=== PATIENT | female | born 1960 | race Caucasian/White ===

== ENCOUNTER 2019-03-14 23:25 | Inpatient (IN) | payer BC ==
[2019-03-14 23:44] LABS: HEMOGLOBIN 14.6 g/dL (12.0-15.5); MEAN CORPUSCULAR HEMOGLOBIN 28.9 pg (27.0-33.4); MEAN CORPUSCULAR HGB CONC 33.9 g/dL (32.0-36.0); MEAN CORPUSCULAR VOLUME 85 fl (80-97); PLATELET COUNT 234 10^3/uL (150-450); RED BLOOD COUNT 5.05 10^6/uL (3.72-5.28); RED CELL DISTRIBUTION WIDTH 13.7 % (11.5-14.0)
[2019-03-15 00:04] LABS: ALKALINE PHOSPHATASE 99 U/L (38-126); ANION GAP 11 (5-19); ASPARTATE AMINO TRANSFERASE 23 U/L (14-36); BILIRUBIN,DIRECT 0.3 mg/dL (0.0-0.4); BILIRUBIN,TOTAL 0.5 mg/dL (0.2-1.3); BLOOD UREA NITROGEN 16 mg/dL (7-20); CALCIUM 8.8 mg/dL (8.4-10.2); CARBON DIOXIDE 27 mmol/L (22-30); CHLORIDE 102 mmol/L (98-107); GLUCOSE 157 mg/dL (75-110); POTASSIUM 3.6 mmol/L (3.6-5.0); TOTAL PROTEIN 7.7 g/dL (6.3-8.2)
--- NOTE | 2019-03-15 00:07 | RADIOLOGY REPORT (SQ) ---
EXAM DESCRIPTION: XR CHEST 1 VIEW COMPLETED DATE/TME: 03/14/2019 23:35 CLINICAL HISTORY: 58 years Female SOB; CP; back pain COMPARISON: None. FINDINGS: Heart is at the upper limits of normal. Infiltrate or atelectasis the left lung base with a small left effusion. Findings may reflect pneumonia. Right lung appears clear. No pneumothorax. IMPRESSION: Left pleural effusion with left lower lobe atelectasis or infiltrate. Findings may reflect pneumonia
[2019-03-15 00:14] LABS: ABSOLUTE LYMPHOCYTES# (MANUAL) 3.6 10^3/uL (0.5-4.7); ABSOLUTE MONOCYTES # (MANUAL) 1.2 10^3/uL (0.1-1.4); BASOPHILS % (MANUAL) 0 % (0-2); EOSINOPHILS % (MANUAL) 1 % (0-6); LYMPHOCYTES % (MANUAL) 18 % (13-45); MONOCYTES % (MANUAL) 6 % (3-13); SEGMENTED NEUTROPHILS % (MAN) 75 % (42-78); TOTAL CELLS COUNTED 100
[2019-03-15 00:16] LABS: PLATELET COMMENT ADEQUATE; RBC MORPHOLOGY COMMENT NORMO-CYTIC/CHROMIC; TOXIC GRANULATION SLIGHT
[2019-03-15 03:01] LABS: APPEARANCE,URINE CLEAR; BILIRUBIN,URINE NEGATIVE (NEGATIVE); COLOR,URINE STRAW; GLUCOSE, URINE NEGATIVE (NEGATIVE); KETONES,URINE NEGATIVE (NEGATIVE); LEUKOCYTE ESTERASE,URINE NEGATIVE (NEGATIVE); NITRITE,URINE NEGATIVE (NEGATIVE); PROTEIN,URINE NEGATIVE (NEGATIVE); URINE SPECIFIC GRAVITY 1.011; UROBILINOGEN,URINE NEGATIVE mg/dL (<2.0)
[2019-03-15] MEDS ORDERED: IPRATROPIUM/ALBUTEROL 0.5-2.5 MG/3 ML AMPUL NEB ONE (03:16)
[2019-03-15] MEDS ORDERED: CEFTRIAXONE 1 GM/D5W RTU 50 ML IV ONE (03:16)
[2019-03-15] MEDS ORDERED: CEFTRIAXONE INJ 1000 MG VIAL IV ONE (03:20)
[2019-03-15] MEDS ORDERED: METHYLPREDNISOLONE INJ 125 MG/2 ML SDV IV ONE (03:20)
--- NOTE | 2019-03-15 03:23 | ER Document Report ---
ED Respiratory Problem - General Chief Complaint: Shortness Of Breath Stated Complaint: SHORTNESS OF BREATH Time Seen by Provider: 03/15/19 02:59 Notes: Patient is a 58-year-old female who presents to the emergency department with a chief complaint of shortness of breath. Patient symptoms started today. Patient states that she has been under a great deal of stress. She states that she feels like she cannot get a good deep breath in. She also has some chest discomfort that started on the right side of her chest and has moved to the mid dle. Denies any vomiting. - Related Data Allergies/Adverse Reactions: No Known Allergies Allergy (Verified 03/15/19 01:18) Home Medications: synthroid. zoloft Past Medical History - Social History Smoking Status: Never Smoker Family History: Reviewed & Not Pertinent Patient has suicidal ideation: No Patient has homicidal ideation: No Endocrine Medical History: Reports: Hx Diabetes Mellitus Type 2 Psychiatric Medical History: Reports: Hx Depression Review of Systems - Review of Systems Notes: REVIEW OF SYSTEMS: CONSTITUTIONAL : Denies recent illness. Denies recent unintentional weight loss. Denies fever, chills, or sweats. EENT: Denies eye, ear, throat, or mouth pain, discharge, or symptoms. Denies nasal or sinus congestion. CARDIOVASCULAR: Denies chest pain. RESPIRATORY: See HPI. GASTROINTESTINAL: Denies nausea, vomiting, and diarrhea. Denies abdominal pain. Denies constipation. GENITOURINARY: Denies difficulty urinating, burning, blood in urine, urgency or frequency. MUSCULOSKELETAL: Denies neck and back pain. Denies joint pain or swelling. SKIN: Denies rash, itchiness, or lesions HEMATOLOGIC : Denies easy bruising or bleeding. LYMPHATIC: Denies swollen, painful, enlarged glands. NEUROLOGICAL: Denies no numbness or tingling denies weakness. Denies headache. Denies altered mental status. Denies alteration in speech. PSYCHIATRIC: Denies stress, anxiety, alteration in sleep patterns, or depression. All other systems reviewed and negative. Physical Exam - Vital signs Vitals: Pulse Ox 93 03/14/19 23:25 - Notes Notes: PHYSICAL EXAMINATION: GENERAL: Appears well, healthy, well-nourished, no acute distress. HEAD: Normocephalic, atraumatic. EYES: PERRL, conjunctiva normal, all extraocular movements intact, sclera nonicteric ENT: Moist mucous membranes. NECK: Supple, no noticeable swelling, redness, rash. Normal range of motion. LUNGS: Diminished breath sounds throughout. CARDIOVASCULAR: S1-S2, regular rate, regular rhythm. Radial pulses 2+, normal. ABDOMEN: Normoactive bowel sounds. Soft, nontender, no guarding, no rebound tenderness, and no masses palpated. EXTREMITIES: Normal strength and range of motion, no pitting or edema. No cyanosis. NEUROLOGICAL: Moves all extremities upon command. Strength 5/5 in all extremities. PSYCH: Normal mood, normal affect. SKIN: Warm, dry. No rash, lesions, ulcerations noted. Normal skin turgor. Course - Re-evaluation Re-evalutation: 03/15/19 03:24 Patient's hematology is unremarkable. Patient has a leukocytosis of 20,000. Her troponin is at 0.064. This most likely demand ischemia, as the patient's oxygen saturation was low. Patient does not normally wear oxygen, but is requiring oxygen here in the emergency department. Patient will be sent for a CT of the chest. 03/15/19 05:07 Patient has a lump noted to her left breast on her CT. She also does have the pleural effusions, which were noted on x-ray. I did a breast exam with VALENTIN Yost at bedside. She did have a small lump noted, consistent with her CT. Patient's ABG also shows that her O2 saturation is 89 on room air, consistent with her oxygen saturation dropping. Her PO2 is 53.3 without oxygen. She will continue oxygen on 2 L nasal cannula. Due to the patient still requiring oxygen, I spoke with Dr. Zeng, the hospitalist. The patient will be admitted to the telemetry floor. - Vital Signs Vital signs: Temp Pulse Resp BP Pulse Ox 97.6 F 93 16 143/84 H 95 03/16/19 07:36 03/16/19 08:27 03/16/19 08:27 03/16/19 07:36 03/16/19 08:27 - Laboratory Result Diagrams: 03/16/19 05:12 03/16/19 05:12 Laboratory results interpreted by me: 03/14/19 03/14/19 03/15/19 23:29 23:29 03:55 WBC 20.0 H Abs Neuts (Manual) 15.0 H Carbonic Acid 1.02 L ABG pH 7.46 H ABG pCO2 33.8 L ABG pO2 53.3 L ABG O2 Saturation 89.6 L Glucose 157 H Discharge - Discharge Clinical Impression: Hypoxia Pneumonia Qualifiers: Pneumonia type: due to unspecified organism Laterality: left Lung location: unspecified part of lung Qualified Code(s): J18.9 - Pneumonia, unspecified organism Condition: Stable Disposition: ADMITTED INPATIENT Admitting Provider: Azucena (Hospitalist) Unit Admitted: Telemetry
--- NOTE | 2019-03-15 04:18 | RADIOLOGY REPORT (SQ) ---
CT CHEST WITHOUT INTRAVENOUS CONTRAST: 03/15/2019 3:13 AM [employer] HISTORY: 58-year old patient with concern for infection, effusion. COMPARISON: None available TECHNIQUE: Serial 3 mm axial images were obtained from above the thoracic inlet to the upper abdomen without intravenous contrast administered. Sagittal and coronal reconstructions were also obtained and reviewed. This exam was performed according to our departmental dose-optimization program, which includes automated exposure control, adjustment of the mA and/or KV according to the patient's size and/or use of iterative reconstruction technique. FINDINGS: Both lobes of the thyroid appear homogenous with no suspicious nodules identified. The thoracic aorta is normal in size. The heart is mildly prominent in size. There is no evidence of a pericardial effusion. Coronary artery catheterizations are seen. There are trace bilateral pleural effusions, left greater than right. No pneumothorax is evident. There are bibasilar airspace opacities. The central tracheobronchial tree is patent. No suspicious lung nodules are identified. No significant supraclavicular, axillary, or mediastinal lymphadenopathy is identified. Evaluation of the upper abdomen is limited by the lack of intravenous contrast. No gross abnormality seen at the upper abdomen. Review of the bone show no evidence of any suspicious lytic or blastic lesions. There is a possible mass within the left retroareolar region measuring at least 3.3 x 2.9 cm. IMPRESSION: There are bibasilar cysts opacities and bilateral effusions, left greater than right. These may reflect infection or atelectasis. There is a possible left retroareolar breast mass. Further evaluation with diagnostic mammogram and ultrasound will likely be warranted.
[2019-03-15 05:12] LABS: ARTERIAL BLOOD BASE EXCESS 0.3 mmol/L; ARTERIAL BLOOD FIO2 ROOM AIR; ARTERIAL BLOOD H2CO3 1.02 mmol/L (1.05-1.35); ARTERIAL BLOOD HCO3 23.4 mmol/L (20-24); ARTERIAL BLOOD O2 SATURATION 89.6 % (94-98); ARTERIAL BLOOD PCO2 33.8 mmHg (35-45); ARTERIAL BLOOD PH 7.46 (7.35-7.45); ARTERIAL BLOOD PO2 53.3 mmHg (80-100); ARTERIAL BLOOD TOTAL CO2 24.5 mmol/L (21-25)
[2019-03-15] MEDS ORDERED: LEVALBUTEROL HCL NEB 0.63 MG/3 ML AMPUL NEB PRN (05:45)
[2019-03-15] MEDS ORDERED: INSULIN REG, HUMAN 100 UNIT/ML 3 ML VIAL (PYX) SUBCUT PRN (05:50)
[2019-03-15] MEDS ORDERED: MAGNESIUM HYDROXIDE SUSP 30 ML UDCUP PO PRN (05:50)
[2019-03-15] MEDS ORDERED: ACETAMINOPHEN 325 MG TABLET PO PRN (05:50)
[2019-03-15] MEDS ORDERED: GUAIFENESIN SYRP 200 MG/10 ML UDC PO PRN (05:50)
[2019-03-15] MEDS ORDERED: MAG HYDROX/AL HYDROX/SIMETH SUSP 30 ML UDCUP PO PRN (05:50)
[2019-03-15] MEDS ORDERED: IBUPROFEN 800 MG TABLET PO PRN (05:50)
[2019-03-15] MEDS ORDERED: HYDRALAZINE HCL INJ/PF 20 MG/1 ML SDV IV PRN (05:50)
[2019-03-15] MEDS ORDERED: LORAZEPAM INJ 2 MG/1 ML VIAL IV PRN (05:50)
[2019-03-15] MEDS ORDERED: DEXTROSE 50%-WATER 25 GM/50 ML DISP.SYRIN IV PRN ×2 (05:52)
[2019-03-15] MEDS ORDERED: GLUCAGON,HUMAN RECOMB 1 MG INJ IM PRN (05:52)
[2019-03-15] MEDS ORDERED: DEXTROSE 40% GEL 15 GM TUBE PO PRN ×2 (05:52)
[2019-03-15] MEDS: HEPARIN SOD (PORCINE) 5,000 UNIT/ML 1 ML VIAL SUBCUT SCH ×3 (06:35→21:32)
--- NOTE | 2019-03-15 06:40 | PDOC H&P ---
History of Present Illness Admission Date/PCP: 03/15/19 05:12 Carin Dewitt Patient complains of: Dyspnea History of Present Illness: STEPHIE SOLIS is a 58 year old female who presents to the emergency room with acute dyspnea. Patient admits suddenly developing severe dyspnea at approximately 10 PM on the evening of of 03/14/2019. Patient describes her dyspnea as a feeling that she could not get a deep into her lungs and it was accompanied by wheezing and worsened by exertion. Her dyspnea was also associated with an acute sharp pain in her right lateral mid back that was worsened with inspiration or certain movements. She denies other associated or accompanying signs and symptoms. She denies prior similar episodes. She admits that she has been under a great deal of emotional stress recently. She has not identified any additional aggravating or ameliorating factors for her dyspnea. In the emergency room she was found to have acute respiratory failure with hypoxia requiring 2 L of oxygen per nasal cannula to maintain an O2 sat greater than 90%. She was also noted to have a white blood count of 20,000 and radiographic findings consistent with atelectasis or possible pneumonia. Patient was subsequently admitted to the hospital for further evaluation treatment. Past Medical History Cardiac Medical History: Denies: Coronary Artery Disease, Hypertension Pulmonary Medical History: Denies: Asthma, Chronic Obstructive Pulmonary Disease (COPD) EENT Medical History: Denies: Cataracts, Ears - Hearing aids Neurological Medical History: Denies: Hemorrhagic CVA, Ischemic CVA, Seizures Endocrine Medical History: Reports: Diabetes Mellitus Type 2, Hypothyroidism - Thyroid goiter treated with thyroidectomy, Obesity Denies: Diabetes Mellitus Type 1, Hyperthyroidism Renal/ Medical History: Denies: Chronic Kidney Disease, Nephrolithiasis Malignancy Medical History: Reports: None Malignancy History Note: Normal annual mammograms times several years last tested March 2018 GI Medical History: Denies: Cirrhosis, Crohn's Disease, Gastroesophageal Reflux Disease, Hepatitis, Peptic Ulcer Disease, Ulcerative Colitis Musculoskeltal Medical History: Denies: Arthritis, Gout Skin Medical History: Denies: Eczema, Psoriasis Psychiatric Medical History: Reports: Depression Denies: Alcohol Dependency, Substance Abuse, Tobacco Dependency Traumatic Medical History: Reports: None Hematology: Denies: Anemia, Bleeding Tendencies Infectious Medical History: Reports: None Past Surgical History Past Surgical History: Reports: Appendectomy, Thyroidectomy, Tonsillectomy Social History Information Source: Patient Lives with: Spouse/Significant other Smoking Status: Never Smoker Electronic Cigarette use?: No Frequency of Alcohol Use: None Hx Recreational Drug Use: No Drugs: None Hx Prescription Drug Abuse: No - Advance Directive Resuscitation Status: Full Code Surrogate healthcare decision maker:: Preethi Solis Family History Family History: CAD, CVA, DM, Hyperlipidemia, Hypertension, Malignancy, Other - Dementia Parental Family History Reviewed: Yes Children Family History Reviewed: No Sibling(s) Family History Reviewed.: Yes Medication/Allergy Allergies/Adverse Reactions: No Known Allergies Allergy (Verified 03/15/19 01:18) Review of Systems Constitutional: ABSENT: chills, fever(s) Eyes: ABSENT: visual disturbances, other - Eye pain Ears: ABSENT: hearing changes, other - Ear pain Nose, Mouth, and Throat: ABSENT: headache(s), mouth pain, sore throat Cardiovascular: PRESENT: dyspnea on exertion. ABSENT: chest pain, edema, orthropnea, palpitations Respiratory: PRESENT: as per HPI, dyspnea. ABSENT: cough Gastrointestinal: ABSENT: abdominal pain, constipation, diarrhea, nausea, v omiting Genitourinary: ABSENT: difficulty urinating, dysuria, hematuria Musculoskeletal: ABSENT: deformity, joint swelling Integumentary: ABSENT: pruritus, rash Neurological: ABSENT: confusion, convulsions, focal weakness, memory loss, syncope Psychiatric: ABSENT: anxiety, depression Endocrine: ABSENT: cold intolerance, heat intolerance, polydipsia, polyphagia, polyuria Hematologic/Lymphatic: ABSENT: easy bleeding, easy bruising Allergic/Immunologic: ABSENT: seasonal rhinorrhea Physical Exam Vital Signs: Temp Pulse Resp BP Pulse Ox 22 H 169/86 H 94 03/15/19 02:00 03/15/19 00:02 03/15/19 02:00 Intake & Output 03/13/19 03/14/19 03/15/19 23:59 23:59 23:59 Weight 86.3 kg General appearance: PRESENT: cooperative, mild distress - Secondary to mild respiratory distress, other - On supplemental oxygen via nasal cannula during my exam Head exam: PRESENT: atraumatic, normocephalic Eye exam: PRESENT: conjunctiva pink. ABSENT: conjunctival injection, scleral icterus Ear exam: PRESENT: normal external ear exam. ABSENT: bleeding, drainage Mouth exam: PRESENT: dry mucosa, neck supple Neck exam: ABSENT: thyromegaly - Patient, tracheal deviation Respiratory exam: PRESENT: decreased breath sounds - Breath sounds slightly decreased at left base, symmetrical, unlabored. ABSENT: prolonged expiratory phas, rales, rhonchi, wheezes Cardiovascular exam: PRESENT: RRR. ABSENT: clicks, gallop, rubs Pulses: PRESENT: normal radial pulses, normal dorsalis pedis pul Vascular exam: PRESENT: normal capillary refill. ABSENT: pallor GI/Abdominal exam: PRESENT: normal bowel sounds, soft Rectal exam: PRESENT: deferred Extremities exam: ABSENT: joint swelling, pedal edema Musculoskeletal exam: ABSENT: deformity, dislocation Neurological exam: PRESENT: alert, oriented to person, oriented to place, oriented to time, oriented to situation, CN II-XII grossly intact. ABSENT: motor sensory deficit Psychiatric exam: PRESENT: appropriate affect, normal mood Skin exam: PRESENT: dry, intact, warm. ABSENT: jaundice, rash, urticaria Results Laboratory Results: 03/14/19 23:29 03/14/19 23:29 03/14/19 03/14/19 03/15/19 23:29 23:29 02:40 WBC 20.0 H RBC 5.05 Hgb 14.6 Hct 43.0 MCV 85 MCH 28.9 MCHC 33.9 RDW 13.7 Plt Count 234 Seg Neutrophils % Not Reportable Carbonic Acid HCO3/H2CO3 Ratio ABG pH ABG pCO2 ABG pO2 ABG HCO3 ABG O2 Saturation ABG Base Excess FiO2 Sodium 139.6 Potassium 3.6 Chloride 102 Carbon Dioxide 27 Anion Gap 11 BUN 16 Creatinine 0.61 Est GFR ( Amer) > 60 Glucose 157 H Calcium 8.8 Total Bilirubin 0.5 AST 23 Alkaline Phosphatase 99 Total Protein 7.7 Albumin 4.0 Urine Color STRAW Urine Appearance CLEAR Urine pH 7.0 Ur Specific [place] 1.011 Urine Protein NEGATIVE Urine Glucose (UA) NEGATIVE Urine Ketones NEGATIVE Urine Blood NEGATIVE Urine Nitrite NEGATIVE Ur Leukocyte Esterase NEGATIVE Urine WBC (Auto) 0 03/15/19 03:55 WBC RBC Hgb Hct MCV MCH MCHC RDW Plt Count Seg Neutrophils % Carbonic Acid 1.02 L HCO3/H2CO3 Ratio 22:1 ABG pH 7.46 H ABG pCO2 33.8 L ABG pO2 53.3 L ABG HCO3 23.4 ABG O2 Saturation 89.6 L ABG Base Excess 0.3 FiO2 ROOM AIR Sodium Potassium Chloride Carbon Dioxide Anion Gap BUN Creatinine Est GFR ( Amer) Glucose Calcium Total Bilirubin AST Alkaline Phosphatase Total Protein Albumin Urine Color Urine Appearance Urine pH Ur Specific [place] Urine Protein Urine Glucose (UA) Urine Ketones Urine Blood Urine Nitrite Ur Leukocyte Esterase Urine WBC (Auto) 03/14/19 23:29 Troponin I 0.064 Impressions: Chest X-Ray 03/14/19 23:35 IMPRESSION: Left pleural effusion with left lower lobe atelectasis or infiltrate. Findings may reflect pneumonia Chest CT 03/15/19 03:16 IMPRESSION: There are bibasilar cysts opacities and bilateral effusions, left greater than right. These may reflect infection or atelectasis. There is a possible left retroareolar breast mass. Further evaluation with diagnostic mammogram and ultrasound will likely be warranted. Assessment and Plan - Diagnosis (7) Acquired hypothyroidism Is this a current diagnosis for this admission?: Yes - Plan Summary Summary: Patient is admitted to the medical floor on telemetry where she will receive routine supportive and symptomatic cares. She will be treated with an aggressive pulmonary toilet utilizing Xopenex and Atrovent and Mucomyst nebulizers. She will be treated with supplemental oxygen utilizing nasal cannula and or noninvasive airway pressure support devices as required to maintain an oxygen saturation greater than 93%. She will be treated with IV antibiotics utilizing Rocephin and Zithromax per protocol for community-acquired pneumonia. She will receive Ativan 1 mg IV every 4 hours as needed for anxiety or restlessness. CBCs, metabolic profiles and magnesium levels will be obtained on a serial basis as appropriate. Patient will be continued on her usual home medications for her chronic medical problems as soon as her medical list has been reconciled and verified. She will need post hospital follow-up with a mammogram for evaluation of the left post-aureolor breast mass. - Time Time Spent with patient: 15-24 minutes Medications reviewed and adjusted accordingly: Yes Anticipated discharge: Home - Inpatient Certification Based on my medical assessment, after consideration of the patient's comorbidities, presenting symptoms, or acuity I expect that the services needed warrant INPATIENT care.: Yes I certify that my determination is in accordance with my understanding of Medicare's requirements for reasonable and necessary INPATIENT services [42 CFR 412.3e].: Yes Medical Necessity: Need Close Monitoring Due to Risk of Patient Decompensation, Need for Nebulizer Therapy and Monitoring of Response, Other - Supplemental oxygen requirement
[2019-03-15] MEDS ORDERED: LEVALBUTEROL HCL NEB 1.25 MG/3 ML AMPUL NEB SCH (08:00)
--- NOTE | 2019-03-15 08:05 | EKG REPORT ---
SEVERITY:- ABNORMAL ECG - SINUS TACHYCARDIA VENTRICULAR TRIGEMINY PROBABLE LEFT ATRIAL ABNORMALITY LATERAL INFARCT, AGE INDETERMINATE BORDERLINE PROLONGED QT INTERVAL : Confirmed by: Orlando Bacon MD 15-Mar-2019 08:05:01
[2019-03-15] MEDS: IPRATROPIUM BROMIDE 0.02% NEB 0.5 MG/2.5 ML AMPUL NEB SCH ×2 (09:34→15:25)
[2019-03-15] MEDS: ACETYLCYSTEINE 20% SOLN 800 MG/4 ML VIAL.NEB NEB SCH ×2 (09:34→20:05)
--- NOTE | 2019-03-15 11:15 | PDOC PROGRESS REPORT ---
Subjective Progress Note for:: 03/15/19 Reason For Visit: MULTIFOCAL PNEUMONIA, ACUTE RESPIRATORY FAILURE Physical Exam Vital Signs: Temp Pulse Resp BP Pulse Ox 98.6 F 97 16 145/76 H 97 03/15/19 07:29 03/15/19 09:34 03/15/19 09:34 03/15/19 07:29 03/15/19 09:34 Pulse Oximeter Continuous Start: 03/15/19 05:45 Freq: RTQ4 Status: Active Protocol: Document 03/15/19 09:34 [facility] (Rec: 03/15/19 10:10 [facility] [id number]) Pulse Oximetry Assessment Oxygen Saturation (92-100) 97 Oxygen Flow Rate (L/min) 2 Oxygen Delivery Method Nasal Cannula Fraction of Inspired Oxygen (FIO2) 28 Equipment Usage Initial Set Up Continuous Pulse Oximeter 24 Hour Charge Charge Now Continuous SpO2 Machine # [id number] Intake & Output 03/14/19 03/15/19 03/16/19 06:59 06:59 06:59 Output Total 650 Balance -650 Weight 180 lb 15.992 oz Results Laboratory Results: 03/14/19 23:29 03/14/19 23:29 03/14/19 03/14/19 03/15/19 23:29 23:29 02:40 WBC 20.0 H RBC 5.05 Hgb 14.6 Hct 43.0 MCV 85 MCH 28.9 MCHC 33.9 RDW 13.7 Plt Count 234 Seg Neutrophils % Not Reportable Carbonic Acid HCO3/H2CO3 Ratio ABG pH ABG pCO2 ABG pO2 ABG HCO3 ABG O2 Saturation ABG Base Excess FiO2 Sodium 139.6 Potassium 3.6 Chloride 102 Carbon Dioxide 27 Anion Gap 11 BUN 16 Creatinine 0.61 Est GFR ( Amer) > 60 Glucose 157 H Calcium 8.8 Total Bilirubin 0.5 AST 23 Alkaline Phosphatase 99 Total Protein 7.7 Albumin 4.0 TSH Urine Color STRAW Urine Appearance CLEAR Urine pH 7.0 Ur Specific [place] 1.011 Urine Protein NEGATIVE Urine Glucose (UA) NEGATIVE Urine Ketones NEGATIVE Urine Blood NEGATIVE Urine Nitrite NEGATIVE Ur Leukocyte Esterase NEGATIVE Urine WBC (Auto) 0 03/15/19 03/15/19 03:55 06:15 WBC RBC Hgb Hct MCV MCH MCHC RDW Plt Count Seg Neutrophils % Carbonic Acid 1.02 L HCO3/H2CO3 Ratio 22:1 ABG pH 7.46 H ABG pCO2 33.8 L ABG pO2 53.3 L ABG HCO3 23.4 ABG O2 Saturation 89.6 L ABG Base Excess 0.3 FiO2 ROOM AIR Sodium Potassium Chloride Carbon Dioxide Anion Gap BUN Creatinine Est GFR ( Amer) Glucose Calcium Total Bilirubin AST Alkaline Phosphatase Total Protein Albumin TSH 0.06 L Urine Color Urine Appearance Urine pH Ur Specific [place] Urine Protein Urine Glucose (UA) Urine Ketones Urine Blood Urine Nitrite Ur Leukocyte Esterase Urine WBC (Auto) 03/14/19 03/15/19 23:29 06:15 Troponin I 0.064 0.085 Impressions: Chest X-Ray 03/14/19 23:35 IMPRESSION: Left pleural effusion with left lower lobe atelectasis or infiltrate. Findings may reflect pneumonia Chest CT 03/15/19 03:16 IMPRESSION: There are bibasilar cysts opacities and bilateral effusions, left greater than right. These may reflect infection or atelectasis. There is a possible left retroareolar breast mass. Further evaluation with diagnostic mammogram and ultrasound will likely be warranted. Assessment and Plan - Diagnosis (1) Pneumonia Qualifiers: Pneumonia type: due to unspecified organism Laterality: left Lung location: unspecified part of lung Qualified Code(s): J18.9 - Pneumonia, unspecified organism Is this a current diagnosis for this admission?: Yes Plan: Continue current antibiotics. Monitor cultures. Continue bronchodilators. (2) Diabetes mellitus type 2 in obese Is this a current diagnosis for this admission?: Yes Plan: Hemoglobin A1c at 6.3. Continue insulin sliding scale. (3) Breast mass, left Is this a current diagnosis for this admission?: Yes Plan: Discussed with the patient. She will need outpatient ultrasound. 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 - Plan Summary Summary: Patient is admitted to the medical floor on telemetry where she will receive routine supportive and symptomatic cares. She will be treated with an a ggressive pulmonary toilet utilizing Xopenex and Atrovent and Mucomyst nebulizers. She will be treated with supplemental oxygen utilizing nasal cannula and or noninvasive airway pressure support devices as required to maintain an oxygen saturation greater than 93%. She will be treated with IV antibiotics utilizing Rocephin and Zithromax per protocol for community-acquired pneumonia. She will receive Ativan 1 mg IV every 4 hours as needed for anxiety or restlessness. CBCs, metabolic profiles and magnesium levels will be obtained on a serial basis as appropriate. Patient will be continued on her usual home medications for her chronic medical problems as soon as her medical list has been reconciled and verified. She will need post hospital follow-up with a mammogram for evaluation of the left post-aureolor breast mass.
[2019-03-15] MEDS: DOCUSATE SODIUM 100 MG CAPSULE PO SCH ×2 (11:35→17:52)
[2019-03-15] MEDS: FAMOTIDINE 20 MG TABLET PO SCH ×2 (11:35→21:32)
[2019-03-15] MEDS: AZITHROMYCIN 500 MG in DEXTROSE 5%-WATER 250 ML IV SCH (11:39)
[2019-03-15 16:41] LABS: A TYPE INFLUENZA AG NEGATIVE (NEGATIVE); B INFLUENZA AG NEGATIVE (NEGATIVE)
[2019-03-15] MEDS: ALBUTEROL SULFATE 0.083% NEB 2.5 MG/3 ML AMPUL NEB PRN (20:05)
[2019-03-15] MEDS: METFORMIN HCL 500 MG TABLET PO SCH (21:37)
[2019-03-15] MEDS: CEFTRIAXONE 1 GM/D5W RTU 1 GM/50 ML RTUPB IV SCH (21:37)
[2019-03-15] MEDS: MELATONIN 5 MG TABLET PO PRN (21:37)
[2019-03-16] MEDS: IPRATROPIUM BROMIDE 0.02% NEB 0.5 MG/2.5 ML AMPUL NEB SCH ×4 (00:24→23:54)
[2019-03-16] MEDS: HEPARIN SOD (PORCINE) 5,000 UNIT/ML 1 ML VIAL SUBCUT SCH ×3 (05:06→21:38)
[2019-03-16 05:35] LABS: HEMATOCRIT 38.6 % (36.0-47.0); HEMOGLOBIN 13.2 g/dL (12.0-15.5); MEAN CORPUSCULAR HEMOGLOBIN 29.1 pg (27.0-33.4); MEAN CORPUSCULAR HGB CONC 34.2 g/dL (32.0-36.0); MEAN CORPUSCULAR VOLUME 85 fl (80-97); PLATELET COUNT 236 10^3/uL (150-450); RED BLOOD COUNT 4.55 10^6/uL (3.72-5.28); RED CELL DISTRIBUTION WIDTH 13.8 % (11.5-14.0); WHITE BLOOD COUNT 17.9 10^3/uL (4.0-10.5)
[2019-03-16 06:07] LABS: ANION GAP 9 (5-19); BLOOD UREA NITROGEN 17 mg/dL (7-20); CARBON DIOXIDE 25 mmol/L (22-30); CHLORIDE 105 mmol/L (98-107); GLUCOSE 113 mg/dL (75-110); POTASSIUM 3.8 mmol/L (3.6-5.0)
[2019-03-16] MEDS: ESCITALOPRAM OXALATE 10 MG TABLET PO SCH (08:16)
[2019-03-16] MEDS: LEVOTHYROXINE SODIUM 0.025 MG TABLET PO SCH (08:16)
[2019-03-16] MEDS: LEVOTHYROXINE SODIUM 0.1 MG TABLET PO SCH (08:17)
[2019-03-16] MEDS: ACETYLCYSTEINE 20% SOLN 800 MG/4 ML VIAL.NEB NEB SCH ×2 (08:26→19:59)
[2019-03-16] MEDS: ALBUTEROL SULFATE 0.083% NEB 2.5 MG/3 ML AMPUL NEB PRN ×2 (08:26→19:59)
[2019-03-16] MEDS: DOCUSATE SODIUM 100 MG CAPSULE PO SCH ×2 (09:50→18:08)
[2019-03-16] MEDS: FAMOTIDINE 20 MG TABLET PO SCH ×2 (09:50→21:38)
[2019-03-16] MEDS: AZITHROMYCIN 500 MG in DEXTROSE 5%-WATER 250 ML IV SCH (09:51)
--- NOTE | 2019-03-16 12:53 | PDOC DISCHARGE SUMMARY ---
Impression - Admit/DC Date/PCP Admission Date/Primary Care Provider: 03/15/19 05:12 Discharge Date: 03/16/19 - Discharge Diagnosis (1) Pneumonia Is this a current diagnosis for this admission?: Yes (2) Diabetes mellitus type 2 in obese Is this a current diagnosis for this admission?: Yes (3) Breast mass, left Is this a current diagnosis for this admission?: Yes - Assessment Summary: Patient is admitted to the medical floor on telemetry where she will receive routine supportive and symptomatic cares. She will be treated with an aggressive pulmonary toilet utilizing Xopenex and Atrovent and Mucomyst nebulizers. She will be treated with supplemental oxygen utilizing nasal wandy teressa and or noninvasive airway pressure support devices as required to maintain an oxygen saturation greater than 93%. She will be treated with IV antibiotics utilizing Rocephin and Zithromax per protocol for community-acquired pneumonia. She will receive Ativan 1 mg IV every 4 hours as needed for anxiety or restlessness. CBCs, metabolic profiles and magnesium levels will be obtained on a serial basis as appropriate. Patient will be continued on her usual home medications for her chronic medical problems as soon as her medical list has been reconciled and verified. She will need post hospital follow-up with a mammogram for evaluation of the left post-aureolor breast mass. - Additional Information Resuscitation Status: Full Code Prescriptions: Albuterol Sulfate [Albuterol Sulfate Hfa] 18 gm IH Q4HP PRN #18 gm PRN Reason: Azithromycin 250 mg PO DAILY #4 tablet Cefuroxime Axetil [Ceftin 500 mg Tablet] 500 mg PO BID #14 tablet Guaifenesin [Robitussin Syrup 200 mg/10 ml Ud Cup] 200 mg PO Q4HP PRN #480 ml PRN Reason: Home Medications: Escitalopram Oxalate [Lexapro] 20 mg PO QAM 03/15/19 Levothyroxine Sodium [Synthroid 0.1 mg Tablet] 0.1 mg PO QAM 03/15/19 Metformin HCl 500 mg PO QHS 03/15/19 Albuterol Sulfate [Albuterol Sulfate Hfa] 18 gm IH Q4HP PRN #18 gm 03/16/19 Azithromycin 250 mg PO DAILY #4 tablet 03/16/19 Cefuroxime Axetil [Ceftin 500 mg Tablet] 500 mg PO BID #14 tablet 03/16/19 Guaifenesin [Robitussin Syrup 200 mg/10 ml Ud Cup] 200 mg PO Q4HP PRN #480 ml 03/16/19 Ibuprofen [Motrin 800 mg Tablet] 800 mg PO Q6HP PRN tablet 03/16/19 History of Present Illiness History of Present Illness: STEPHIE MATA is a 58 year old female who presents to the emergency room with acute dyspnea. Patient admits suddenly developing severe dyspnea at approximately 10 PM on the evening of of 03/14/2019. Patient describes her dyspnea as a feeling that she could not get a deep into her lungs and it was accompanied by wheezing and worsened by exertion. Her dyspnea was also associated with an acute sharp pain in her right lateral mid back that was worsened with inspiration or certain movements. She denies other associated or accompanying signs and symptoms. She denies prior similar episodes. She admits that she has been under a great deal of emotional stress recently. She has not identified any additional aggravating or ameliorating factors for her dyspnea. In the emergency room she was found to have acute respiratory failure with hypoxia requiring 2 L of oxygen per nasal cannula to maintain an O2 sat greater than 90%. She was also noted to have a white blood count of 20,000 and radiographic findings consistent with atelectasis or possible pneumonia. Patient was subsequently admitted to the hospital for further evaluation treatment. Hospital Course Hospital Course: (1) Pneumonia discharge on PO ceftin and azithromycin. will also discharge on albuterol. (2) Diabetes mellitus type 2 in obese Hemoglobin A1c at 6.3. resume home meds on discharge (3) Breast mass, left Discussed with the patient. She will need outpatient ultrasound. 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 Physical Exam Vital Signs: Temp Pulse Resp BP Pulse Ox 97.6 F 100 16 139/62 H 92 03/16/19 11:07 03/16/19 11:07 03/16/19 11:07 03/16/19 11:07 03/16/19 11:07 Pulse Oximeter Continuous Start: 03/15/19 05:45 Freq: RTQ4 Status: Active Protocol: Document 03/16/19 08:27 [facility] (Rec: 03/16/19 08:51 [facility] [id number]) Additional RT Notes Other [facility] [place] Pulse Oximetry Assessment Oxygen Saturation (92-100) 95 Oxygen Flow Rate (L/min) 2 Oxygen Delivery Method Nasal Cannula Equipment Usage Initial Set Up Continuous SpO2 Machine # 3 Intake & Output 03/15/19 03/16/19 03/17/19 06:59 06:59 06:59 Intake Total 2019 250 Output Total 650 Balance -650 2019 250 Weight 180 lb 15.992 oz 181 lb 3.52 oz General appearance: PRESENT: no acute distress Head exam: PRESENT: atraumatic, normocephalic Respiratory exam: PRESENT: clear to auscultation mata. ABSENT: accessory muscle use GI/Abdominal exam: PRESENT: normal bowel sounds. ABSENT: ascites Extremities exam: ABSENT: joint swelling, pedal edema Musculoskeletal exam: PRESENT: ambulatory Neurological exam: PRESENT: alert, awake, oriented to person, oriented to place, oriented to time, oriented to situation Psychiatric exam: PRESENT: appropriate affect, normal mood Results Laboratory Results: WBC 17.9 10^3/uL (4.0-10.5) H 03/16/19 05:12 RBC 4.55 10^6/uL (3.72-5.28) 03/16/19 05:12 Hgb 13.2 g/dL (12.0-15.5) 03/16/19 05:12 Hct 38.6 % (36.0-47.0) 03/16/19 05:12 MCV 85 fl (80-97) 03/16/19 05:12 MCH 29.1 pg (27.0-33.4) 03/16/19 05:12 MCHC 34.2 g/dL (32.0-36.0) 03/16/19 05:12 RDW 13.8 % (11.5-14.0) 03/16/19 05:12 Plt Count 236 10^3/uL (150-450) 03/16/19 05:12 Lymph % (Auto) Not Reportable 03/14/19 23:29 [place] % (Auto) Not Reportable 03/14/19 23:29 Eos % (Auto) Not Reportable 03/14/19 23:29 Baso % (Auto) Not Reportable 03/14/19 23:29 Absolute Neuts (auto) Not Reportable 03/14/19 23:29 Absolute Lymphs (auto) Not Reportable 03/14/19 23:29 Absolute Monos (auto) Not Reportable 03/14/19 23: Absolute Eos (auto) Not Reportable 03/14/19 23: Absolute Basos (auto) Not Reportable 03/14/19 23: Total Counted 100 03/14/19 23: Seg Neutrophils % Not Reportable 03/14/19 23: Seg Neuts % (Manual) 75 % (42-78) 03/14/19 23: Lymphocytes % (Manual) 18 % (13-45) 03/14/19 23: Monocytes % (Manual) 6 % (3-13) 03/14/19 23: Eosinophils % (Manual) 1 % (0-6) 03/14/19 23: Basophils % (Manual) 0 % (0-2) 03/14/19 23: Abs Neuts (Manual) 15.0 10^3/uL (1.7-8.2) H 03/14/19 23:29 Abs Lymphs (Manual) 3.6 10^3/uL (0.5-4.7) 03/14/19 23: Abs Monocytes (Manual) 1.2 10^3/uL (0.1-1.4) 03/14/19 23: Absolute Eos (Manual) 0.2 10^3/uL (0.0-0.6) 03/14/19 23: Abs Basophils (Manual) 0.0 10^3/uL (0.0-0.2) 03/14/19 23: Toxic Granulation SLIGHT 03/14/19 23:29 Platelet Comment ADEQUATE 03/14/19 23: RBC Morph Comment NORMO-CYTIC/CHROMIC 03/14/19 23: Carbonic Acid 1.02 mmol/L (1.05-1.35) L 03/15/19 03:55 HCO3/H2CO3 Ratio 22:1 03/15/19 03:55 ABG pH 7.46 (7.35-7.45) H 03/15/19 03:55 ABG pCO2 33.8 mmHg (35-45) L 03/15/19 03:55 ABG pO2 53.3 mmHg (80-100) L 03/15/19 03:55 ABG HCO3 23.4 mmol/L (20-24) 03/15/19 03:55 ABG Total CO2 24.5 mmol/L (21-25) 03/15/19 03:55 ABG O2 Saturation 89.6 % (94-98) L 03/15/19 03:55 ABG Base Excess 0.3 mmol/L 03/15/19 03:55 FiO2 ROOM AIR 03/15/19 03:55 Sodium 138.7 mmol/L (137-145) 03/16/19 05:12 Potassium 3.8 mmol/L (3.6-5.0) 03/16/19 05:12 Chloride 105 mmol/L (98-107) 03/16/19 05:12 Carbon Dioxide 25 mmol/L (22-30) 03/16/19 05:12 Anion Gap 9 (5-19) 03/16/19 05:12 BUN 17 mg/dL (7-20) 03/16/19 05:12 Creatinine 0.55 mg/dL (0.52-1.25) 03/16/19 05:12 Est GFR ( Amer) > 60 (>60) 03/16/19 05:12 Est GFR (MDRD) Non-Af > 60 (>60) 03/16/19 05:12 Glucose 113 mg/dL (75-110) H 03/16/19 05:12 POC Glucose 196 mg/dL (70-110) H 03/16/19 11:07 Hemoglobin A1c % 6.3 % (4.7-6.0) H 03/15/19 06:15 Calcium 9.0 mg/dL (8.4-10.2) 03/16/19 05:12 Magnesium 2.4 mg/dL (1.6-2.3) H 03/16/19 05:12 Total Bilirubin 0.5 mg/dL (0.2-1.3) 03/14/19 23:29 Direct Bilirubin 0.3 mg/dL (0.0-0.4) 03/14/19 23:29 Neonat Total Bilirubin Not Reportable 03/14/19 23:29 Neonat Direct Bilirubin Not Reportable 03/14/19 23:29 Neonat Indirect Bili Not Reportable 03/14/19 23:29 AST 23 U/L (14-36) 03/14/19 23:29 ALT 15 U/L (<35) 03/14/19 23:29 Alkaline Phosphatase 99 U/L (38-126) 03/14/19 23:29 Troponin I 0.067 ng/mL 03/15/19 18:15 Total Protein 7.7 g/dL (6.3-8.2) 03/14/19 23:29 Albumin 4.0 g/dL (3.5-5.0) 03/14/19 23:29 TSH 0.06 uIU/mL (0.47-4.68) L 03/15/19 06:15 Urine Color STRAW 03/15/19 02:40 Urine Appearance CLEAR 03/15/19 02:40 Urine pH 7.0 (5.0-9.0) 03/15/19 02:40 Ur Specific [place] 1.011 03/15/19 02:40 Urine Protein NEGATIVE mg/dL (NEGATIVE) 03/15/19 02:40 Urine Glucose (UA) NEGATIVE mg/dL (NEGATIVE) 03/15/19 02:40 Urine Ketones NEGATIVE mg/dL (NEGATIVE) 03/15/19 02:40 Urine Blood NEGATIVE (NEGATIVE) 03/15/19 02:40 Urine Nitrite NEGATIVE (NEGATIVE) 03/15/19 02:40 Urine Bilirubin NEGATIVE (NEGATIVE) 03/15/19 02:40 Urine Urobilinogen NEGATIVE mg/dL (<2.0) 03/15/19 02:40 Ur Leukocyte Esterase NEGATIVE (NEGATIVE) 03/15/19 02:40 Urine WBC (Auto) 0 /HPF 03/15/19 02:40 Squamous Epi Cells Auto <1 /HPF 03/15/19 02:40 Urine Mucus (Auto) RARE /LPF 03/15/19 02:40 Urine Ascorbic Acid NEGATIVE (NEGATIVE) 03/15/19 02:40 Influenza A (Rapid) NEGATIVE (NEGATIVE) 03/15/19 16:05 Influenza B (Rapid) NEGATIVE (NEGATIVE) 03/15/19 16:05 03/14/19 03/15/19 03/15/19 23:29 06:15 11:49 Troponin I 0.064 0.085 0.046 03/15/19 18:15 Troponin I 0.067 Impressions: Chest X-Ray 03/14/19 23:35 IMPRESSION: Left pleural effusion with left lower lobe atelectasis or infiltrate. Findings may reflect pneumonia Chest CT 03/15/19 03:16 IMPRESSION: There are bibasilar cysts opacities and bilateral effusions, left greater than right. These may reflect infection or atelectasis. There is a possible left retroareolar breast mass. Further evaluation with diagnostic mammogram and ultrasound will likely be warranted. Plan Time Spent: Less than 30 Minutes Stroke Is this a Stroke Patient?: No Acute Heart Failure - Is this a Heart Failure Patient?: No
--- NOTE | 2019-03-16 14:36 | PDOC PROGRESS REPORT ---
Subjective Progress Note for:: 03/16/19 Subjective:: 03/16/2019: Patient seen and examined. We discharged the patient earlier but she did not feel well enough to go home. Reason For Visit: MULTIFOCAL PNEUMONIA, ACUTE RESPIRATORY FAILURE Physical Exam Vital Signs: Temp Pulse Resp BP Pulse Ox 97.6 F 100 16 139/62 H 92 03/16/19 11:07 03/16/19 11:07 03/16/19 11:07 03/16/19 11:07 03/16/19 11:07 Pulse Oximeter Continuous Start: 03/15/19 05:45 Freq: RTQ4 Status: Active Protocol: Document 03/16/19 08:27 JDR (Rec: 03/16/19 08:51 JDR [id number]) Additional RT Notes Other [facility] [place] Pulse Oximetry Assessment Oxygen Saturation (92-100) 95 Oxygen Flow Rate (L/min) 2 Oxygen Delivery Method Nasal Cannula Equipment Usage Initial Set Up Continuous SpO2 Machine # 3 Intake & Output 03/15/19 03/16/19 03/17/19 06:59 06:59 06:59 Intake Total 2019 250 Output Total 650 Balance -650 2019 250 Weight 180 lb 15.992 oz 181 lb 3.52 oz Exam: General appearance: PRESENT: no acute distress Head exam: PRESENT: atraumatic, normocephalic Respiratory exam: PRESENT: clear to auscultation mata. ABSENT: accessory muscle use GI/Abdominal exam: PRESENT: normal bowel sounds. ABSENT: ascites Extremities exam: ABSENT: joint swelling, pedal edema Musculoskeletal exam: PRESENT: ambulatory Neurological exam: PRESENT: alert, awake, oriented to person, oriented to place, oriented to time, oriented to situation Psychiatric exam: PRESENT: appropriate affect, normal mood Results Laboratory Results: 03/16/19 05:12 03/16/19 05:12 03/16/19 03/16/19 05:12 05:12 WBC 17.9 H RBC 4.55 Hgb 13.2 Hct 38.6 MCV 85 MCH 29.1 MCHC 34.2 RDW 13.8 Plt Count 236 Sodium 138.7 Potassium 3.8 Chloride 105 Carbon Dioxide 25 Anion Gap 9 BUN 17 Creatinine 0.55 Est GFR ( Amer) > 60 Glucose 113 H Calcium 9.0 Magnesium 2.4 H 03/14/19 03/15/19 03/15/19 23:29 06:15 11:49 Troponin I 0.064 0.085 0.046 03/15/19 18:15 Troponin I 0.067 Impressions: Chest X-Ray 03/14/19 23:35 IMPRESSION: Left pleural effusion with left lower lobe atelectasis or infiltrate. Findings may reflect pneumonia Chest CT 03/15/19 03:16 IMPRESSION: There are bibasilar cysts opacities and bilateral effusions, left greater than right. These may reflect infection or atelectasis. There is a possible left retroareolar breast mass. Further evaluation with diagnostic mammogram and ultrasound will likely be warranted. Assessment and Plan - Diagnosis (1) Pneumonia Qualifiers: Pneumonia type: due to unspecified organism Laterality: left Lung location: unspecified part of lung Qualified Code(s): J18.9 - Pneumonia, unspecified organism Is this a current diagnosis for this admission?: Yes Plan: Continue current antibiotics. Follow cultures. Continue bronchodilators. (2) Diabetes mellitus type 2 in obese Is this a current diagnosis for this admission?: Yes Plan: Hemoglobin A1c at 6.3. Continue insulin sliding scale. (3) Breast mass, left Is this a current diagnosis for this admission?: Yes Plan: Discussed with the patient. She will need outpatient ultrasound. 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 - Plan Summary Summary: Patient is admitted to the medical floor on telemetry where she will receive routine supportive and symptomatic cares. She will be treated with an aggressive pulmonary toilet utilizing Xopenex and Atrovent and Mucomyst nebulizers. She will be treated with supplemental oxygen utilizing nasal cannula and or noninvasive airway pressure support devices as required to maintain an oxygen saturation greater than 93%. She will be treated with IV antibiotics utilizing Rocephin and Zithromax per protocol for community-acquired pneumonia. She will receive Ativan 1 mg IV every 4 hours as needed for anxiety or restlessness. CBCs, metabolic profiles and magnesium levels will be obtained on a serial basis as appropriate. Patient will be continued on her usual home medications for her chronic medical problems as soon as her medical list has been reconciled and verified. She will need post hospital follow-up with a mammogram for evaluation of the left post-aureolor breast mass.
[2019-03-16] MEDS: CEFTRIAXONE 1 GM/D5W RTU 1 GM/50 ML RTUPB IV SCH (21:32)
[2019-03-16] MEDS: METFORMIN HCL 500 MG TABLET PO SCH (21:32)
[2019-03-16] MEDS: MELATONIN 5 MG TABLET PO PRN (21:32)
[2019-03-17] MEDS: HEPARIN SOD (PORCINE) 5,000 UNIT/ML 1 ML VIAL SUBCUT SCH ×3 (05:01→21:22)
[2019-03-17] MEDS: IPRATROPIUM BROMIDE 0.02% NEB 0.5 MG/2.5 ML AMPUL NEB SCH ×2 (07:28→16:21)
[2019-03-17] MEDS: ACETYLCYSTEINE 20% SOLN 800 MG/4 ML VIAL.NEB NEB SCH ×2 (07:28→20:48)
[2019-03-17 09:20] LABS: ABSOLUTE BASOPHILS # (AUTO) 0.1 10^3/uL (0.0-0.2); ABSOLUTE EOSINOPHILS # (AUTO) 0.2 10^3/uL (0.0-0.6); ABSOLUTE LYMPHOCYTES (AUTO) 3.4 10^3/uL (0.5-4.7); ABSOLUTE MONOCYTES (AUTO) 1.1 10^3/uL (0.1-1.4); BASOPHILS % (AUTO) 0.8 % (0-2); EOSINOPHILS % (AUTO) 1.8 % (0-6); HEMATOCRIT 40.3 % (36.0-47.0); HEMOGLOBIN 13.7 g/dL (12.0-15.5); LYMPHOCYTES % (AUTO) 26.8 % (13-45); MEAN CORPUSCULAR HEMOGLOBIN 28.8 pg (27.0-33.4); MEAN CORPUSCULAR HGB CONC 34.1 g/dL (32.0-36.0); MEAN CORPUSCULAR VOLUME 85 fl (80-97); MONOCYTES % (AUTO) 8.6 % (3-13); PLATELET COUNT 250 10^3/uL (150-450); RED BLOOD COUNT 4.77 10^6/uL (3.72-5.28); RED CELL DISTRIBUTION WIDTH 13.9 % (11.5-14.0); TOTAL CELLS COUNTED % (AUTO) 100 %; WHITE BLOOD COUNT 12.9 10^3/uL (4.0-10.5)
[2019-03-17 09:47] LABS: ANION GAP 9 (5-19); BLOOD UREA NITROGEN 16 mg/dL (7-20); CALCIUM 8.8 mg/dL (8.4-10.2); CARBON DIOXIDE 26 mmol/L (22-30); CHLORIDE 103 mmol/L (98-107); GLUCOSE 131 mg/dL (75-110)
[2019-03-17] MEDS: FAMOTIDINE 20 MG TABLET PO SCH ×2 (10:34→21:23)
[2019-03-17] MEDS: AZITHROMYCIN 500 MG in DEXTROSE 5%-WATER 250 ML IV SCH (10:39)
[2019-03-17] MEDS: LEVOTHYROXINE SODIUM 0.025 MG TABLET PO SCH (10:40)
[2019-03-17] MEDS: DOCUSATE SODIUM 100 MG CAPSULE PO SCH ×2 (10:40→18:02)
[2019-03-17] MEDS: LEVOTHYROXINE SODIUM 0.1 MG TABLET PO SCH (10:40)
[2019-03-17] MEDS: ESCITALOPRAM OXALATE 10 MG TABLET PO SCH (10:40)
--- NOTE | 2019-03-17 15:53 | PDOC PROGRESS REPORT ---
Subjective Progress Note for:: 03/17/19 Subjective:: STEPHIE MATA is a 58 year old female who presents to the emergency room with acute dyspnea. Patient admits suddenly developing severe dyspnea at approximately 10 PM on the evening of of 03/14/2019. Patient describes her dyspnea as a feeling that she could not get a deep into her lungs and it was accompanied by wheezing and worsened by exertion. Her dyspnea was also associated with an acute sharp pain in her right lateral mid back that was worsened with inspiration or certain movements. She denies other associated or accompanying signs and symptoms. She denies prior similar episodes. She admits that she has been under a great deal of emotional stress recently. She has not identified any additional aggravating or ameliorating factors for her dyspnea. In the emergency room she was found to have acute respiratory failure with hypoxia requiring 2 L of oxygen per nasal cannula to maintain an O2 sat greater than 90%. She was also noted to have a white blood count of 20,000 and radiographic findings consistent with atelectasis or possible pneumonia. Patient was subsequently admitted to the hospital for further evaluation treatm 03/17/2019. No acute events overnight. Patient is still dependent on supplemental O2, shortness of breath has improved, denies any fever, chills, nausea, vomiting, diarrhea, constipation or any urinary symptoms. Reason For Visit: MULTIFOCAL PNEUMONIA, ACUTE RESPIRATORY FAILURE Physical Exam Vital Signs: Temp Pulse Resp BP Pulse Ox 98.2 F 90 17 148/71 H 93 03/17/19 14:54 03/17/19 14:54 03/17/19 14:54 03/17/19 14:54 03/17/19 14:54 Pulse Oximeter Continuous Start: 03/15/19 05:45 Freq: RTQ4 Status: Active Protocol: Document 03/17/19 12:00 [facility] (Rec: 03/17/19 12:14 [facility] [id number]) Pulse Oximetry Assessment Oxygen Saturation (92-100) 96 Oxygen Flow Rate (L/min) 2 Oxygen Delivery Method Nasal Cannula Equipment Usage Equipment in Use Continuous SpO2 Machine # 3 Intake & Output 03/16/19 03/17/19 03/18/19 06:59 06:59 06:59 Intake Total 2019 3660 941 Balance 2019 3660 941 Weight 82.2 kg 82.2 kg General appearance: PRESENT: no acute distress, well-developed, well-nourished Head exam: PRESENT: atraumatic, normocephalic Respiratory exam: PRESENT: crackles. ABSENT: rales, rhonchi, wheezes Cardiovascular exam: PRESENT: RRR. ABSENT: diastolic murmur, rubs, systolic murmur Neurological exam: PRESENT: alert, awake, oriented to person, oriented to place, oriented to time, oriented to situation, CN II-XII grossly intact. ABSENT: motor sensory deficit Results Laboratory Results: 03/17/19 08:55 03/17/19 08:55 03/17/19 03/17/19 08:55 08:55 WBC 12.9 H RBC 4.77 Hgb 13.7 Hct 40.3 MCV 85 MCH 28.8 MCHC 34.1 RDW 13.9 Plt Count 250 Seg Neutrophils % 62.0 Sodium 138.1 Potassium 4.0 Chloride 103 Carbon Dioxide 26 Anion Gap 9 BUN 16 Creatinine 0.56 Est GFR ( Amer) > 60 Glucose 131 H Calcium 8.8 03/14/19 03/15/19 03/15/19 23:29 06:15 11:49 Troponin I 0.064 0.085 0.046 03/15/19 18:15 Troponin I 0.067 Impressions: Chest X-Ray 03/14/19 23:35 IMPRESSION: Left pleural effusion with left lower lobe atelectasis or infiltrate. Findings may reflect pneumonia Chest CT 03/15/19 03:16 IMPRESSION: There are bibasilar cysts opacities and bilateral effusions, left greater than right. These may reflect infection or atelectasis. There is a possible left retroareolar breast mass. Further evaluation with diagnostic mammogram and ultrasound will likely be warranted. Assessment and Plan - Diagnosis (1) Pneumonia Qualifiers: Pneumonia type: due to unspecified organism Laterality: left Lung location: unspecified part of lung Qualified Code(s): J18.9 - Pneumonia, unspecified organism Is this a current diagnosis for this admission?: Yes Plan: Continue current antibiotics. Follow cultures. Continue bronchodilators. (2) Breast mass, left Is this a current diagnosis for this admission?: Yes Plan: Discussed with the patient. She will need outpatient ultrasound. 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 (3) Acute respiratory failure with hypoxia Is this a current diagnosis for this admission?: Yes Plan: as per number 1 (4) Diabetes mellitus type 2 in obese Is this a current diagnosis for this admission?: Yes Plan: Hemoglobin A1c at 6.3. Continue insulin sliding scale. - Plan Summary Summary: Patient is admitted to the medical floor on telemetry where she will receive routine supportive and symptomatic cares. She will be treated with an aggressive pulmonary toilet utilizing Xopenex and Atrovent and Mucomyst nebulizers. She will be treated with supplemental oxygen utilizing nasal cannula and or noninvasive airway pressure support devices as required to maintain an oxygen saturation greater than 93%. She will be treated with IV antibiotics utilizing Rocephin and Zithromax per protocol for community-acquired pneumonia. She will receive Ativan 1 mg IV every 4 hours as needed for anxiety or restlessness. CBCs, metabolic profiles and magnesium levels will be obtained on a serial basis as appropriate. Patient will be continued on her usual home medications for her chronic medical problems as soon as her medical list has been reconciled and verified. She will need post hospital follow-up with a mammogram for evaluation of the left post-aureolor breast mass.
[2019-03-17] MEDS: ALBUTEROL SULFATE 0.083% NEB 2.5 MG/3 ML AMPUL NEB PRN (20:48)
[2019-03-17] MEDS: CEFTRIAXONE 1 GM/D5W RTU 1 GM/50 ML RTUPB IV SCH (21:31)
[2019-03-17] MEDS: METFORMIN HCL 500 MG TABLET PO SCH (21:32)
[2019-03-17] MEDS: MELATONIN 5 MG TABLET PO PRN (21:32)
[2019-03-18] MEDS: IPRATROPIUM BROMIDE 0.02% NEB 0.5 MG/2.5 ML AMPUL NEB SCH ×2 (00:48→07:48)
[2019-03-18] MEDS: HEPARIN SOD (PORCINE) 5,000 UNIT/ML 1 ML VIAL SUBCUT SCH ×2 (05:23→13:24)
[2019-03-18 06:47] LABS: HEMATOCRIT 41.8 % (36.0-47.0); HEMOGLOBIN 14.2 g/dL (12.0-15.5); MEAN CORPUSCULAR VOLUME 85 fl (80-97); PLATELET COUNT 237 10^3/uL (150-450); RED BLOOD COUNT 4.91 10^6/uL (3.72-5.28); WHITE BLOOD COUNT 14.3 10^3/uL (4.0-10.5)
[2019-03-18 07:07] LABS: ANION GAP 11 (5-19); BLOOD UREA NITROGEN 14 mg/dL (7-20); CALCIUM 8.6 mg/dL (8.4-10.2); CARBON DIOXIDE 26 mmol/L (22-30); CHLORIDE 102 mmol/L (98-107); GLUCOSE 104 mg/dL (75-110); POTASSIUM 4.2 mmol/L (3.6-5.0)
[2019-03-18] MEDS: ACETYLCYSTEINE 20% SOLN 800 MG/4 ML VIAL.NEB NEB SCH (07:48)
[2019-03-18] MEDS: LEVOTHYROXINE SODIUM 0.025 MG TABLET PO SCH (08:28)
[2019-03-18] MEDS: LEVOTHYROXINE SODIUM 0.1 MG TABLET PO SCH (08:28)
[2019-03-18] MEDS: ESCITALOPRAM OXALATE 10 MG TABLET PO SCH (08:28)
[2019-03-18] MEDS ORDERED: LISINOPRIL 5 MG TABLET PO SCH (08:30)
[2019-03-18] MEDS: FAMOTIDINE 20 MG TABLET PO SCH (09:23)
[2019-03-18] MEDS: DOCUSATE SODIUM 100 MG CAPSULE PO SCH (09:26)
[2019-03-18] MEDS: AZITHROMYCIN 500 MG in DEXTROSE 5%-WATER 250 ML IV SCH (09:26)
[2019-03-18] MEDS ORDERED: LISINOPRIL 5 MG TABLET PO ONE (11:15)
[2019-03-18 11:48] VITALS: BP 146/68
== END 2019-03-18 14:31 | disposition home or self-care (01) | DRG 193 ==
LOC: ER 23:25 → EH 03-15 05:12 → 4S 03-15 05:57
PROVIDERS: ADMIT Emergency Medicine; ATTEND Emergency Medicine
DX: J18.9 Pneumonia, unspecified organism (principal); J96.01 Acute respiratory failure with hypoxia; E11.9 Type 2 diabetes mellitus without complications; N63.20 Unspecified lump in the left breast, unspecified quadrant; E89.0 Postprocedural hypothyroidism; F32.9 Major depressive disorder, single episode, unspecified; Z90.49 Acquired absence of other specified parts of digestive tract; Z82.3 Family history of stroke; Z82.49 Family history of ischemic heart disease and other diseases of the circulatory system; Z83.3 Family history of diabetes mellitus; Z83.438 Family history of other disorder of lipoprotein metabolism and other lipidemia; Z80.9 Family history of malignant neoplasm, unspecified
CPT/HCPCS: 36415; 71045; 71250; 80048; 80053; 81001; 82803; 82962; 83036; 83735; 84443; 84484; 85025; 85027; 87804; 93005; 93010; 94640; 94762; 96365; 99285; J0456; J0696; J1815; J2930; J3490; J7060; J7620